=== PATIENT | female | born 1935 | race African-American/Black ===

== ENCOUNTER 2018-10-30 10:49 | Inpatient (IN) ==
[2018-10-30] MEDS ORDERED: SODIUM CHLORIDE 0.9% 1000ML 1,000 ML IV SCH (11:45)
[2018-10-30] MEDS ORDERED: SODIUM CHLORIDE 0.9% 500 ML IV SCH (11:45)
--- NOTE | 2018-10-30 12:02 | XRay Report ---
XR chest 1V portable CLINICAL HISTORY: weakness COMPARISON STUDY: 07/01/2012 FINDINGS: Mild stable cardiomegaly. Lungs are considered clear. Diaphragms are smooth. IMPRESSION: No acute process. The above report was generated using voice recognition software. It may contain grammatical, syntax or spelling errors. Electronically signed by: Blair Jenkins M.D. 10/30/2018 12:00 PM
[2018-10-30 12:24] LABS: Mean Corpuscular Hgb Conc 25.1 g/dL (32-36)
[2018-10-30 12:34] LABS: Alanine Aminotransferase 17 U/L (12-78); Albumin Globulin Ratio 0.7 (0.9-2); Albumin Level 3.3 gm/dl (3.4-5.0); Alkaline Phosphatase 83 U/L (45-117); Aspartate Aminotransferase 17 U/L (15-37); BUN Creatinine Ratio 15.8 (10-20); Bilirubin,Total 0.7 mg/dl (0.2-1); Blood Urea Nitrogen 15 mg/dl (7-18); Calcium 8.8 mg/dl (8.5-10.1); Carbon Dioxide 26 mmol/L (21-32); Chloride 109 mmol/L (98-107); Est GFR (African American) 65.5; Est GFR (Non-African American) 56.5; Globulin 4.7 gm/dl (2.5-4.0); Glucose 88 mg/dl (70-99); Magnesium 2.3 mg/dl (1.8-2.4); Potassium 4.1 mmol/L (3.5-5.1); Sodium 140 mmol/L (136-145); Troponin I < 0.015 ng/ml (0-0.045)
[2018-10-30 12:45] LABS: Hematocrit (blood only) 22.3 % (37-47); Hemoglobin 5.6 g/dL (12.0-16.0); Mean Corpuscular Volume 59.8 fL (80-100); Platelet Count 320 K/uL (130-400); Red Blood Count 3.73 M/uL (4.2-5.4); White Blood Count 7.18 K/uL (4.8-10.8)
[2018-10-30 12:46] LABS: Anisocytosis Present; Basophils # (auto) 0.06 K/uL (0-0.2); Basophils % (auto) 0.8 %; Eosinophils # (auto) 0.13 K/uL (0-0.5); Eosinophils % (auto) 1.8 %; Hypochromasia Present; Immature Granulocytes # (auto) 0.01 K/uL (0.00-0.02); Immature Granulocytes % (auto) 0.1 %; Lymphocytes # (auto) 3.69 K/uL (1.2-3.4); Lymphocytes % (auto) 51.4 %; Microcytosis Present; Monocytes # (auto) 0.67 K/uL (0.11-0.59); Monocytes % (auto) 9.3 %; Neutrophils # (auto) 2.62 K/uL (1.4-6.5); Neutrophils % (auto) 36.6 %; Ovalocytes 1+
[2018-10-30] MEDS ORDERED: SODIUM CHLORIDE 0.9% 250 ML IV PRN ×2 (12:52→16:29)
[2018-10-30 13:16] LABS: Reticulocyte % 1.4 % (0.5-2.0); Reticulocytes # 0.05 10^6/uL (0.02-0.10)
--- NOTE | 2018-10-30 13:57 | History & Physical Report ---
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 She has routine labs done periodically to monitor due to keppra use. She had these labs drawn yesterday and was noted to have a Hb of 5.9. She was directed to the ED for further evaluation. Family is present. They state that she is nonverbal since her ruptured aneurysm. She does not really interact with them since that time, but they can tell when something is wrong with her based on other cues. They state that she has had nothing concerning happening other than she has been sleeping more the last two weeks. They deny fever, SOB, chest pain, abd pain, n/v/c/d, LE pain or swelling. They state that she eats a usual diet, but they have to feed her. She has recently had difficulty chewing meat, so she has not had much meat for several months. They do not see christine blood in her stools or black stools. No other bruising or bleeding. No falls. She has given them no indications of any sort of pain. Family states that her seizures are very well controlled as long as she takes keppra as scheduled. There was an issue yesterday and she missed her AM dose. This did result in a seizure, however the last seizure activity prior to this is so long ago they cannot quantify it. Allergies Allergy/AdvReac Type Severity Reaction Status Date / Time No Known Drug Allergies Allergy Unknown . Verified 10/30/18 11:47 Home Medications Home Medications Medication Instructions Recorded Confirmed Type levetiracetam 500 mg PO BID 10/30/18 10/30/18 History Past Med/Surg History Social History Preferred Language: Bengali Communication Ability: Unable Communication Ability Comment: had brain hemorrhage no communication Beliefs That Will Affect Care: Rastafarian Current Living Situation: Family Other Information That Helps Us Care for You: No Feels Safe at Home: Yes Smoking Status: Never smoker Hx Alcohol Use: No Hx Substance Use: No Review of Systems Pertinent positives and negatives reviewed in HPI--all others negative Physical Exam Vital Signs (Past 24 Hours): Last Vital Signs Temp 36.7 C 10/30/18 13:36 Pulse 73 10/30/18 13:36 Resp 16 10/30/18 13:36 BP 134/68 10/30/18 13:36 Pulse Ox 98 10/30/18 13:36 Constitutional: WD/WN, vitals as above + thin Eyes: normal visual castillo by confrontation and + anicteric sclerae Neck: normal visual inspection and trachea midline Respiratory: normal respiratory effort, lungs clear to auscultation Cardiovascular: Rate/Rhythm: regular rate and regular rhythm Gastrointestinal (Abdomen): Inspection/Auscultation: abdomen not distended Percussion/Palpation: abdomen soft; abdomen nontender Musculoskeletal: Head/Neck/Chest: normocephalic and head atraumatic negative for edema, peripheral pulses intact Skin: no rashes, warm and dry Neurologic: + not awake Pt does not speak to me or answer any questions Psychiatric: Pt is lying comfortably in bed. Does not open her eyes to name. Does not appear in pain or other distress. Results & Data Diagnostic Findings CXR: neg for acute ECG Rhythm: normal sinus Code Status & VTE Plan Code Status Full code per family VTE Prophylaxis Plan VTE Prophylaxis will be ordered: Yes
--- NOTE | 2018-10-30 14:49 | Emergency Department Note ---
Entered by Yudith Ellison acting as a scribe for ED Provider Note CHIEF COMPLAINT: Fatigue, abnormal lab results. HISTORY OF PRESENT ILLNESS: The patient is an 83 year old female who presents to the Emergency Room with complaints of persistent fatigue and abnormal lab results beginning recently. History limited secondary to patient's nonverbal status. Additional history provided by family. Her family reports the patient had routine outpatient blood work yesterday, ordered by Dr. Veronica, which revealed a hemoglobin of 5.9. They note the patient has been increasingly fatigued lately. The family notes she was extremely sweaty this morning, and had a low blood pressure reading. They deny any blood in stool, vaginal bleeding, nosebleeds, bleeding of gums, fevers, bruising, rashes, diarrhea, loose stools, swelling, or vomiting. They report she is at her baseline aside from her increased fatigue. Her family reports the patient had a brain hemorrhage 10 years ago, and is unable to speak or walk without assistance. They note the patient has been on seizure medication for 9 years, and still experiences mini-seizures intermittently. The family notes she had mini seizures yesterday. REVIEW OF SYSTEMS: Unobtainable secondary to patient's nonverbal status. PMHx/PSHx: Brain hemorrhage, HTN. SOCIAL HISTORY: Patient lives at home. PHYSICAL EXAM: GENERAL: Awake, responsive but nonverbal (baseline, per family) HENT: Normocephalic, atraumatic. Oropharynx unremarkable. EYES: Normal conjunctiva. Sclera non-icteric. NECK: Inspection normal. Non-tender. Supple. No nuchal rigidity. FROM. No masses. RESPIRATORY: Clear to auscultation. No wheezes. No rales. Normal respiratory effort. CARDIAC: Normal rate. Normal rhythm. No murmurs. No rubs. Extremities warm and well perfused. Pulses equal. No JVD. GI: Soft, non-distended. No tenderness to palpation. No rebound or guarding. No masses. RECTAL: Deferred. MUSCULOSKELETAL: Atraumatic. Chest examination reveals no tenderness. The back is symmetrical on inspection without obvious abnormality. There is no CVA tenderness to palpation. No joint edema. Contractures of extremities. LOWER EXTREMITIES: Calves are equal size bilaterally and non-tender. No edema. No discoloration. NEURO: Normal sensorium. No sensory or motor deficits noted. SKIN: No rash or jaundice noted. EMERGENCY DEPARTMENT COURSE: 1107: Past medical records reviewed. The patient was evaluated in room C9, and a complete history and physical examination were performed. 1249: The patient is stable. Her family consented to blood transfusion. 1258: I reviewed the patient's case with Dr. Jaquez [facility] hospitalist. They will evaluate the patient for further management. MEDICAL DECISION MAKING: Prior records/ancillary studies reviewed and summarized above. The patient has had trending anemia. She has not had blood work done in 2 years. Nursing notes reviewed and agree them. Additional history obtained from the patient's family. The patient's history was concerning for fatigue and possible severe anemia. Differential diagnosis: Etiologies such as severe anemia, metabolic, infection, hypo/hyperglycemia, electrolyte abnormalities, cardiac sources, intracerebral event, toxicologic, neurologic, as well as others were entertained. Physical examination: As above. ER treatment provided: IV Lock Type and cross Packed red blood cell transfusion 2 units Assessment the patient was stable. Diagnostics interpretation by me: ECG: No acute ischemia. The labs revealed of 5.6. Chemistry panel unremarkable. Reticulocyte count normal. Record review indicates the patient had iron studies done earlier today as well. It appears that she has an iron deficiency. Imaging studies: Chest x-ray negative for acute disease. Consultation: A consultation was placed with the hospitalist. The case was discussed and diagnostics were reviewed. The patient was evaluated in the ER for further ceci atment. CRITICAL CARE: I have personally spent greater than 30 minutes of critical care time in the direct management of this patient. This includes bedside care, interpretation of diagnostic studies, and testing, discussion with consultants, patient, and family members, and other required patient management activities. This 30 minutes is in excess of all separately billable procedures. IMPRESSION: Severe anemia. PLAN: Being evaluated by hospitalist. The scribe's documentation has been prepared under my direction and personally reviewed by me in its entirety. I confirm that the note above accurately r eflects all work, treatment, procedures, and medical decision making performed by me. Impression & Plan Severe anemia Past Med/Surg History Medical History Ruptured cerebral aneurysm Social History Preferred Language: Macanese Communication Ability: Unable Communication Ability Comment: had brain hemorrhage no communication Beliefs That Will Affect Care: Faith Current Living Situation: Family Other Information That Helps Us Care for You: No Feels Safe at Home: Yes Smoking Status: Never smoker Hx Alcohol Use: No Hx Substance Use: No Results & Data Vital Signs Vital Signs - 24 hr 10/30/18 10:51 10/30/18 12:07 10/30/18 12:09 Temperature 36.7 C Temperature Source Oral Sepsis Recent Fever Within 48 Hours No Sepsis New/Unexplained Change in Mental Status No Sepsis Action Taken by Nursing No Action Required Pulse Rate 82 56 L Pulse Rate [Apical] 62 Pulse Rate from SpO2 Sensor Respiratory Rate 12 13 17 Respiratory Effort / Characteristics Non-Labored Spontaneous Respiratory Depth Normal Blood Pressure 81/45 L 134/54 L Blood Pressure [Right Arm] 134/54 L Blood Pressure Mean 57 80 Blood Pressure Mean [Right Arm] 80 Blood Pressure Position Sitting Blood Pressure Position [Right Arm] Lying Pulse Oximetry 100 97 Oxygen Delivery Method Room Air Room Air 10/30/18 12:50 10/30/18 13:00 10/30/18 13:15 Temperature Temperature Source Sepsis Recent Fever Within 48 Hours Sepsis New/Unexplained Change in Mental Status Sepsis Action Taken by Nursing Pulse Rate 59 L 53 L 60 Pulse Rate [Apical] Pulse Rate from SpO2 Sensor Respiratory Rate 15 15 14 Respiratory Effort / Characteristics Respiratory Depth Blood Pressure Blood Pressure [Right Arm] Blood Pressure Mean Blood Pressure Mean [Right Arm] Blood Pressure Position Blood Pressure Position [Right Arm] Pulse Oximetry Oxygen Delivery Method 10/30/18 13:30 10/30/18 13:35 10/30/18 13:36 Temperature 36.7 C Temperature Source Oral Sepsis Recent Fever Within 48 Hours Sepsis New/Unexplained Change in Mental Status Sepsis Action Taken by Nursing Pulse Rate 69 71 73 Pulse Rate [Apical] Pulse Rate from SpO2 Sensor Respiratory Rate 10 L 13 16 Respiratory Effort / Characteristics Respiratory Depth Blood Pressure 134/68 134/68 Blood Pressure [Right Arm] Blood Pressure Mean 90 90 Blood Pressure Mean [Right Arm] Blood Pressure Position Lying Blood Pressure Position [Right Arm] Pulse Oximetry 98 Oxygen Delivery Method 10/30/18 13:37 10/30/18 13:41 10/30/18 13:45 Temperature Temperature Source Sepsis Recent Fever Within 48 Hours Sepsis New/Unexplained Change in Mental Status Sepsis Action Taken by Nursing Pulse Rate 64 63 Pulse Rate [Apical] Pulse Rate from SpO2 Sensor 60 58 L Respiratory Rate 13 20 Respiratory Effort / Characteristics Respiratory Depth Blood Pressure 157/103 H Blood Pressure [Right Arm] Blood Pressure Mean 121 Blood Pressure Mean [Right Arm] Blood Pressure Position Blood Pressure Position [Right Arm] Pulse Oximetry 96 100 Oxygen Delivery Method Room Air 10/30/18 13:46 10/30/18 13:53 10/30/18 14:00 Temperature 36.7 C Temperature Source Oral Sepsis Recent Fever Within 48 Hours Sepsis New/Unexplained Change in Mental Status Sepsis Action Taken by Nursing Pulse Rate 59 L 61 73 Pulse Rate [Apical] Pulse Rate from SpO2 Sensor 57 L 70 Respiratory Rate 13 20 17 Respiratory Effort / Characteristics Respiratory Depth Blood Pressure 168/59 H 168/59 H Blood Pressure [Right Arm] Blood Pressure Mean 95 95 Blood Pressure Mean [Right Arm] Blood Pressure Position Blood Pressure Position [Right Arm] Pulse Oximetry 100 100 100 Oxygen Delivery Method 10/30/18 14:01 10/30/18 14:08 10/30/18 14:10 Temperature 36.8 C Temperature Source Oral Sepsis Recent Fever Within 48 Hours Sepsis New/Unexplained Change in Mental Status Sepsis Action Taken by Nursing Pulse Rate 71 66 58 L Pulse Rate [Apical] Pulse Rate from SpO2 Sensor 64 59 L Respiratory Rate 12 20 15 Respiratory Effort / Characteristics Respiratory Depth Blood Pressure 121/66 138/63 Blood Pressure [Right Arm] Blood Pressure Mean 84 88 Blood Pressure Mean [Right Arm] Blood Pressure Position Blood Pressure Position [Right Arm] Pulse Oximetry 100 100 100 Oxygen Delivery Method 10/30/18 14:20 10/30/18 14:21 10/30/18 14:30 Temperature Temperature Source Sepsis Recent Fever Within 48 Hours Sepsis New/Unexplained Change in Mental Status Sepsis Action Taken by Nursing Pulse Rate 68 Pulse Rate [Apical] Pulse Rate from SpO2 Sensor 64 60 Respiratory Rate 13 14 20 Respiratory Effort / Characteristics Respiratory Depth Blood Pressure 163/80 H Blood Pressure [Right Arm] Blood Pressure Mean 107 Blood Pressure Mean [Right Arm] Blood Pressure Position Blood Pressure Position [Right Arm] Pulse Oximetry 100 Oxygen Delivery Method 10/30/18 14:32 Temperature Temperature Source Sepsis Recent Fever Within 48 Hours Sepsis New/Unexplained Change in Mental Status Sepsis Action Taken by Nursing Pulse Rate Pulse Rate [Apical] Pulse Rate from SpO2 Sensor 61 Respiratory Rate 22 Respiratory Effort / Characteristics Respiratory Depth Blood Pressure 138/63 Blood Pressure [Right Arm] Blood Pressure Mean 88 Blood Pressure Mean [Right Arm] Blood Pressure Position Blood Pressure Position [Right Arm] Pulse Oximetry 100 Oxygen Delivery Method Home Medications Current Medication List: was personally reviewed by me Laboratory Data Attestation: I reviewed the patient's lab results. Result diagrams: 10/30/18 11:37 10/30/18 11:37 Lab Results 10/30/18 10/30/18 10/30/18 Range/Units 11:37 11:37 11:37 WBC 7.18 (4.8-10.8) K/uL RBC 3.73 L (4.2-5.4) M/uL Hgb 5.6 L* (12.0-16.0) g/dL Hct 22.3 L (37-47) % MCV 59.8 L (80-100) fL MCH 15.0 L (25-34) pg MCHC 25.1 L (32-36) g/dL Plt Count 320 (130-400) K/uL Immature Gran % (Auto) 0.1 % Neut % (Auto) 36.6 % Lymph % (Auto) 51.4 % [place] % (Auto) 9.3 % Eos % (Auto) 1.8 % Baso % (Auto) 0.8 % Reticulocyte % (Auto) 1.4 (0.5-2.0) % Immature Gran # (Auto) 0.01 (0.00-0.02) K/uL Neut # (Auto) 2.62 (1.4-6.5) K/uL Lymph # (Auto) 3.69 H (1.2-3.4) K/uL [place] # (Auto) 0.67 H (0.11-0.59) K/uL Eos # (Auto) 0.13 (0-0.5) K/uL Baso # (Auto) 0.06 (0-0.2) K/uL Reticulocyte # 0.05 (0.02-0.10) 10^6/uL Hypochromasia Present Anisocytosis Present Microcytosis Present Ovalocytes 1+ Sodium 140 (136-145) mmol/L Potassium 4.1 (3.5-5.1) mmol/L Chloride 109 H (98-107) mmol/L Carbon Dioxide 26 (21-32) mmol/L Anion Gap 4.0 (3-11) BUN 15 (7-18) mg/dl Creatinine 0.94 (0.6-1.2) mg/dl Est Cr Clr Drug Dosing Not Reportable Est GFR ( Amer) 65.5 Est GFR (Non-Af Amer) 56.5 BUN/Creatinine Ratio 15.8 (10-20) Glucose 88 (70-99) mg/dl Calcium 8.8 (8.5-10.1) mg/dl Magnesium 2.3 (1.8-2.4) mg/dl Total Bilirubin 0.7 (0.2-1) mg/dl AST 17 (15-37) U/L ALT 17 (12-78) U/L Alkaline Phosphatase 83 (45-117) U/L Troponin I < 0.015 (0-0.045) ng/ml Total Protein 8.0 (6.4-8.2) gm/dl Albumin 3.3 L (3.4-5.0) gm/dl Globulin 4.7 H (2.5-4.0) gm/dl Albumin/Globulin Ratio 0.7 L (0.9-2) TSH 0.990 (0.300-4.500) uIu/ml Blood Type O Positive Antibody Screen NEGATIVE Crossmatch See Detail 10/30/18 Range/Units 11:37 WBC (4.8-10.8) K/uL RBC (4.2-5.4) M/uL Hgb (12.0-16.0) g/dL Hct (37-47) % MCV (80-100) fL MCH (25-34) pg MCHC (32-36) g/dL Plt Count (130-400) K/uL Immature Gran % (Auto) % Neut % (Auto) % Lymph % (Auto) % [place] % (Auto) % Eos % (Auto) % Baso % (Auto) % Reticulocyte % (Auto) Cancelled (0.5-2.0) % Immature Gran # (Auto) (0.00-0.02) K/uL Neut # (Auto) (1.4-6.5) K/uL Lymph # (Auto) (1.2-3.4) K/uL [place] # (Auto) (0.11-0.59) K/uL Eos # (Auto) (0-0.5) K/uL Baso # (Auto) (0-0.2) K/uL Reticulocyte # Cancelled (0.02-0.10) 10^6/uL Hypochromasia Anisocytosis Microcytosis Ovalocytes Sodium (136-145) mmol/L Potassium (3.5-5.1) mmol/L Chloride (98-107) mmol/L Carbon Dioxide (21-32) mmol/L Anion Gap (3-11) BUN (7-18) mg/dl Creatinine (0.6-1.2) mg/dl Est Cr Clr Drug Dosing Est GFR ( Amer) Est GFR (Non-Af Amer) BUN/Creatinine Ratio (10-20) Glucose (70-99) mg/dl Calcium (8.5-10.1) mg/dl Magnesium (1.8-2.4) mg/dl Total Bilirubin (0.2-1) mg/dl AST (15-37) U/L ALT (12-78) U/L Alkaline Phosphatase (45-117) U/L Troponin I (0-0.045) ng/ml Total Protein (6.4-8.2) gm/dl Albumin (3.4-5.0) gm/dl Globulin (2.5-4.0) gm/dl Albumin/Globulin Ratio (0.9-2) TSH (0.300-4.500) uIu/ml Blood Type Antibody Screen Crossmatch Administered Medications Sodium Chloride (Nss 1000ml) 1,000 mls @ 125 mls/hr IV .Q8H [facility] Stop: 10/30/18 19:44 Last Admin: 10/30/18 12:39 Dose: 125 mls/hr Documented by: [id number] Discontinued Medications Sodium Chloride (Nss) 500 mls @ 999 mls/hr IV .Q31M [facility] Stop: 10/30/18 12:15 Last Infusion: 10/30/18 12:39 Dose: 0 mls/hr Documented by: [id number] Admin: 10/30/18 12:11 Dose: 999 mls/hr Documented by: [id number] Imaging Data Radiologist's Impression: Radiology results as stated below per my review and the radiologist's interpretation: XR chest 1V portable CLINICAL HISTORY: weakness COMPARISON STUDY: 07/01/2012 FINDINGS: Mild stable cardiomegaly. Lungs are considered clear. Diaphragms are smooth. IMPRESSION: No acute process. The above report was generated using voice recognition software. It may contain grammatical, syntax or spelling errors. Electronically signed by: Blair Jenkins M.D. 10/30/2018 12:00 PM ECG Data Attestation: I personally reviewed and interpreted this ECG as follows: Indication: weakness Rate (beats per minute): 70 Rhythm: normal sinus Findings: + nonspecific-ST abn and + PAC; no ST depression and no ST elevation Blood Pressure Blood Pressure Findings: Normal blood pressure Blood Pressure Disposition: did not require urgent referral Discharge Plan Visit Data Chief Complaint: Abnormal Labs/Diagnostic Testing Stated Complaint: LOW BLOOD COUNT, SENT BY [facility] OFFICE ED Provider: Duane Correia Discharge Problem: Severe anemia Patient Disposition: Being Evaluated by Hospitalist Forms Stand Alone Forms: My [facility] Prescriptions Prescriptions: No Action levetiracetam 500 mg Tablet 500 mg PO BID RF: 0 Referrals Referrals: Margie Naranjo MD [Primary Care Provider] - The scribe's documentation has been prepared under my direction and personally reviewed by me in its entirety. I confirm that the note above accurately reflects all work, treatment, procedures, and medical decision making performed by me.
[2018-10-30] MEDS ORDERED: ACETAMINOPHEN 325 MG TAB PO PRN (15:46)
[2018-10-30] MEDS ORDERED: ONDANSETRON INJ 2 MG/ML 2 ML VIAL IV PRN (15:46)
[2018-10-30] MEDS ORDERED: MAGNESIUM HYDROXIDE SUSP 30 ML UDC PO PRN (15:46)
[2018-10-30] MEDS ORDERED: IRON SUCROSE 100 MG in 0.9 % SODIUM CHLORIDE 100 ML IV ONE (16:30)
[2018-10-30] MEDS: levETIRAcetam 500 MG TAB PO SCH (21:52)
[2018-10-30 22:51] LABS: Hematocrit (blood only) 30.7 % (37-47); Hemoglobin 8.9 g/dL (12.0-16.0)
[2018-10-31 07:05] LABS: Basophils # (auto) 0.06 K/uL (0-0.2); Basophils % (auto) 0.8 %; Eosinophils # (auto) 0.25 K/uL (0-0.5); Eosinophils % (auto) 3.2 %; Hematocrit (blood only) 31.1 % (37-47); Hemoglobin 9.1 g/dL (12.0-16.0); Immature Granulocytes # (auto) 0.03 K/uL (0.00-0.02); Immature Granulocytes % (auto) 0.4 %; Lymphocytes # (auto) 2.86 K/uL (1.2-3.4); Lymphocytes % (auto) 36.3 %; Mean Corpuscular Hgb Conc 29.3 g/dL (32-36); Mean Corpuscular Volume 67.6 fL (80-100); Monocytes # (auto) 0.65 K/uL (0.11-0.59); Monocytes % (auto) 8.3 %; Neutrophils # (auto) 4.02 K/uL (1.4-6.5); Platelet Count 248 K/uL (130-400); RDW Coefficient of Variation 26.5 % (11.5-14.5); RDW Standard Deviation 64.7 fL (36.4-46.3); White Blood Count 7.87 K/uL (4.8-10.8)
[2018-10-31 07:58] LABS: Anisocytosis Present; Hypochromasia Present
[2018-10-31 08:11] LABS: Folate (Folic Acid) 13.09 ng/ml (>5.38)
[2018-10-31] MEDS ORDERED: FERROUS SULFATE 325 MG TAB PO SCH (09:00)
[2018-10-31] MEDS ORDERED: ASCORBIC ACID 500 MG TAB PO SCH (09:00)
[2018-10-31 09:03] LABS: INR 1.1 (0.9-1.1); Prothrombin Time 11.2 Seconds (9.0-12.0)
[2018-10-31] MEDS: levETIRAcetam 500 MG TAB PO SCH (09:33)
[2018-10-31 09:34] LABS: Albumin Level 3.1 gm/dl (3.4-5.0); BUN Creatinine Ratio 14.8 (10-20); Calcium 8.8 mg/dl (8.5-10.1); Creatinine Clr Calc Pharmacy 42.4 ml/min; Est GFR (African American) 78.4; Est GFR (Non-African American) 67.6; Potassium 3.9 mmol/L (3.5-5.1)
[2018-10-31 09:42] LABS: Albumin Globulin Ratio 0.7 (0.9-2); Bilirubin,Total 0.9 mg/dl (0.2-1); Globulin 4.2 gm/dl (2.5-4.0); Total Protein 7.3 gm/dl (6.4-8.2)
--- NOTE | 2018-10-31 10:34 | Discharge Summary ---
Date of Service October 31, 2018 Admission HPI Per Admitting Provider 83 y/o F who was sent to the ED for anemia noted on routine labs. 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 She has routine labs done periodically to monitor due to keppra use. She had these labs drawn yesterday and was noted to have a Hb of 5.9. She was directed to the ED for further evaluation. Family is present. They state that she is nonverbal since her ruptured aneurysm. She does not really interact with them since that time, but they can tell when something is wrong with her based on other cues. They state that she has had no thing concerning happening other than she has been sleeping more the last two weeks. They deny fever, SOB, chest pain, abd pain, n/v/c/d, LE pain or swelling. They state that she eats a usual diet, but they have to feed her. She has recently had difficulty chewing meat, so she has not had much meat for several months. They do not see christine blood in her stools or black stools. No other bruising or bleeding. No falls. She has given them no indications of any sort of pain. Family states that her seizures are very well controlled as long as she takes keppra as scheduled. There was an issue yesterday and she missed her AM dose. This did result in a seizure, however the last seizure activity prior to this is so long ago they cannot quantify it. Admission Exam Per Admitting Provider Constitutional: WD/WN, vitals as above + thin Eyes: normal visual castillo by confrontation and + anicteric sclerae Neck: normal visual inspection and trachea midline Respiratory: normal respiratory effort, lungs clear to auscultation Cardiovascular: Rate/Rhythm: regular rate and regular rhythm Gastrointestinal (Abdomen): Inspection/Auscultation: abdomen not distended Percussion/Palpation: abdomen soft; abdomen nontender Musculoskeletal: Head/Neck/Chest: normocephalic and head atraumatic negative for edema, peripheral pulses intact Skin: no rashes, warm and dry Neurologic: + not awake Pt does not speak to me or answer any questions Psychiatric: Pt is lying comfortably in bed. Does not open her eyes to name. Does not appear in pain or other distress. Principal Diagnosis Microcytic Microchromic Anemia suspected to iron deficiency Discharge Exam Constitutional comfortable; no acute distress Eyes + anicteric sclerae Neck normal visual inspection and trachea midline Respiratory normal respiratory effort, lungs clear to auscultation Cardiovascular Rate/Rhythm: regular rate and regular rhythm Extremities: no pedal edema Gastrointestinal (Abdomen) Inspection/Auscultation: normal bowel sounds Percussion/Palpation: abdomen soft; abdomen nontender Musculoskeletal Head/Neck/Chest: normocephalic and head atraumatic Neurologic moves all extremities and awake at neuro baseline per family Discharge Data Allergies Allergy/AdvReac Type Severity Reaction Status Date / Time No Known Drug Allergies Allergy Unknown . Verified 10/30/18 11:47 Consultations 10/30/18 14:16 ED Decision to Admit Stat Hospital Course (1) Severe anemia: Iron level at 14 as outpatient, ferriten was not available MCV c/s microcytic anemia/iron deficiency anemia, MCHC low consistent with hypochromic anemia from iron deficiency B12/folate ordered given overall nutritional status and were WNL. Gave venofer x1 given concerns for absorption there was concern pt might not tolerate TID iron to start given her limited PO intake and small body habitus Start QD iron + vitamin C on day of discharge, can take QD and increase to BID after 2 weeks if tolerating from GI standpoint ED ordered 2 units PRBC which were transfused and values then increased to 8.9 on 10/30 at 10pm; morning of discharge 9.1 and appears stable Hemoccult pending collection but no history from family of black/bloody BMs peripheral smear supported microcytic hypochromic iron deficiency anemia (2) Seizure-like activity: Related to hx of ruptured cerebral aneurysm Stable if taking keppra as prescribed continue home meds family had concerns that medication caused anemia, but doubt as WBC and platelets are normal (3) DVT prophylaxis: SCDs given Hb Total Time Total Time Spent Total Time Spent (In Minutes): 30 Total Time Includes: Examination of the Patient, Discharge Planning and Medication Reconciliation Discharge Plan Discharge Items Patient Disposition: Hospice - Home Reason For Visit: ANEMIA Discharge Diagnosis: Iron Deficiency Anemia Discharge Goals: Improve disease control, Improve function and Increase independence Activity: Per 'Additional Instructions' section Non-emergency contact: Primary Care Provider Call non-emergency contact if: you have any medication questions Follow-up/Referrals: Margie Naranjo MD [Primary Care Provider] - 11/07/18 11:40 am (Please, follow up with Dr. Chapman on MondayNovember 07 at 11:40 am. *If you need to change this appointment, call the office at [phone].) Diet: Regular Addtl Provider Instructions: You were sent to the hospital because of a low hemoglobin level. Our lab work indicated that your low hemoglobin level was probably due to a low iron level. You were given 2 units of packed red blood cells in the hospital. You were also given oral iron and oral vitamin C. A follow up appointment with Dr. Veronica will be made for you, please keep this appointment. This appointment is on MondayNovember 07 at 11:40 am. A prescription for iron and Vitamin C will be sent to your pharmacy. Please take this medication as prescribed. Iron and Vitamin C can also be purchased over the counter without a prescription. Information on iron deficiency anemia, oral iron supplementation and Vitamin C will be printed for you on discharge. Please read this information carefully. Return to the ER if you experience any bloody vomit, bloody stools or black stools. Prescriptions: New ascorbic acid (vitamin C) [Vitamin C] 500 mg Tablet 500 mg PO QAM 30 Days Qty: 30 RF: 0 ferrous sulfate 325 mg (65 mg iron) Tablet,Delayed Release (Dr/Ec) 325 mg PO QAM 30 Days Qty: 30 RF: 0 Continued levetiracetam 500 mg Tablet 500 mg PO BID RF: 0 Stand-Alone Forms: [facility]/Other Patient Handouts: Vitamin C Ascorbic Acid Oral tablet, Supplements Iron, ED Anemia Iron Deficiency Discharge Orders: Discharge Order (Routine); Ordered 10/31/18 Ordered By: Blair Contreras Admission Data Admit Date/Time: 10/30/18 13:34 Attending Provider: Armond Dubon Admit Provider: Nicole Jaquez Primary Care Provider: Magrie Naranjo V. Other Providers: Nicole Jaquez Service: Medical Other Interventions: Discharge Summary Assessment (RN) Last Done: 10/31/18 14:06 DC Date/Time DO NOT enter until pt leaves facility: 10/31/18 14:52 Supervising Physician Co-Signing Physician Notes I personally examined the patient and verified all hilario points of history and exam, discussed case, and agree with decision making with Dr Thurman. No meaningful HPI or review of systems obtainable. Dr. Thurman discussed case with family earlier. Vitals noted, in general she is in no distress. HEENT normocephalic atraumatic mucous members are moist. Breathing is unlabored no accessory muscle use good effort. Cardio is regular no rubs murmurs or gallops. Anemiacertainly nothing appearing to be acute hemorrhage. She is showing no active bleeding and she is entirely hemodynamically stable. Her symptoms were that of fatigue not any instability. She does appear iron deficient, replacement has been started. Will defer endoscopic workup for this to PCP/family, replace iron. Would follow CBC approximately weekly for the next few weeks to ensure stability, repeat iron levels in about 8-12 weeks, and follow back on IV iron if her levels are not improving Stable for home
== END 2018-10-31 14:52 | disposition home or self-care (01) | DRG 811 ==
LOC: ED 10:49 → 2N 13:34 → SUATTDRO 13:34 → 2N 14:43